=== PATIENT | female | born 1960 | race Caucasian/White ===

== ENCOUNTER → 2023-07-07 10:31 | Outpatient (REF) | payer BC, SELFPAY | LOC: WDC 10:31 | PROVIDERS: ATTENDING PHYSICIAN Nurse Practitioner | DX: Z12.31 Encounter for screening mammogram for malignant neoplasm of breast (principal) | CPT/HCPCS: 77063; 77067 ==

== ENCOUNTER → 2024-07-08 07:40 | Outpatient (REF) | payer OTHER, SELFPAY | LOC: WDC 07:40 | PROVIDERS: ATTENDING PHYSICIAN Nurse Practitioner Family; FAMILY PHYSICIAN Nurse Practitioner | DX: Z12.31 Encounter for screening mammogram for malignant neoplasm of breast (principal) | CPT/HCPCS: 77063; 77067 ==

== ENCOUNTER → 2024-10-12 13:53 | Outpatient (REF) | payer OTHER, SELFPAY | LOC: RAD 13:53 | PROVIDERS: ATTENDING PHYSICIAN Nurse Practitioner | DX: M25.551 Pain in right hip (principal) | CPT/HCPCS: 73523 ==

== ENCOUNTER 2024-11-18 16:57 | Emergency (ER) | payer OTHER, SELFPAY ==
[2024-11-18 17:00] VITALS: BP 147/83
--- NOTE | 2024-11-18 18:15 | EDRN ---
Elijah GUILLAUME in room w/ pt at this time.
[2024-11-18 18:21] VITALS: BP 143/94
--- NOTE | 2024-11-18 18:30 | ED.GENMED ---
History of Present Illness
General
Chief Complaint: Skin Problem
Source: patient
Exam Limitations: none
Time Seen by Provider: 11/18/24 17:41
History of Present Illness
History of Present Illness:
64yoF with a history of hypothyroidism presenting for evaluation of a facial boil. Patient started with a small pimple on the left side of her face just lateral to the nose about 7 to 10 days ago. Over the past 24 hours, the swelling has worsened
and it has come to a head. She states that a large amount of pus was draining last night. She went to see her PCP today who advised her to come to the ED for possible drainage. She was given a prescription for Augmentin although has not picked it
up yet. She denies any fevers, chills, body aches and is otherwise feeling well.
Phy Exam
General Physical Exam
General Presentation: well appearing and no apparent distress
General Skin: warm and dry
General Habitus: normal
ENT Exam
ENT Exam: normocephalic
Pulmonary Exam
Pulmonary Exam: no respiratory distress
Neurological Exam
Neurological Exam: alert
Mayra Coma Scale
Eye Opening: Spontaneous
Verbal Response: Oriented
Motor Response: Obeys Commands
GCS Total Score: 15
Skin Exam
Skin Exam: warm/dry and other (Carbuncle noted to the L cheek lateral to the nose with two 'heads,' one is scabbed over and the other is noted to be a moncada. No surrounding cellulitis.)
Psychiatric Exam
Psychiatric Exam: normal mood/affect
Course
Vital Signs
Initial and Last Documented VS:
Initial Vital Signs
Temp Pulse Resp BP Pulse Ox
98.3 F 84 18 147/83 99
11/18/24 17:00 11/18/24 17:00 11/18/24 17:00 11/18/24 17:00 11/18/24 17:00
Last Documented Vital Signs
Temp Pulse Resp BP Pulse Ox
98.3 F 76 16 143/94 99
11/18/24 17:00 11/18/24 18:21 11/18/24 18:21 11/18/24 18:21 11/18/24 18:30
MDM/Problems Addressed
Differential Diagnosis Includes:
64yoF here with a facial boil for >1 week. Became worse over the past 24 hours and started to drain. No f/c or systemic symptoms. VSS. She is well-appearing in no acute distress. On exam, there is a carbuncle noted lateral to the nose with an
overlying white head. Area is indurated without fluctuance. No signs of surrounding cellulitis. Decision made to avoid I&D given that the carbuncle is located within the danger triangle of the face although when I was examining the patient, the
area started to spontaneously drain purulence. She was advised to fill the antibiotics that were prescribed by her PCP earlier today and apply warm compresses. Strict ED return precautions reviewed. She was in agreement with plan and was
discharged in stable condition.
*Pulse Oximetry
SaO2: 99
Oxygen Mode of Delivery: Room air
Patient hypoxic: no (99%)
*Critical Care Note
Total Time (30-74mins, 75-104mins- exclusive of procedures): Not Applicable
ED Attending Note
-
Portions of this chart may have been created with voice recognition software.� Occasional wrong word or��sound alike� substitutions may have occurred due to the inherent limitations of voice recognition software.
Discharge Plan
Departure
Patient Disposition: Home (Routine Discharge)
Date of Disposition: 11/18/24
Time of Disposition: 18:29
Patient with high blood pressure during this ER visit?: Yes
Discharge Problem:
Carbuncle of face
Instructions: Boil - ED (DC)
Activity Restrictions/Additional Instructions:
Apply warm compresses to affected area 4-6 times daily. Start taking antibiotics as prescribed by your family doctor.
Return to the ER with any new or worsening symptoms including fevers, spreading redness, or if you do not have any improvement in the next 3 to 4 days.
Interventions
Interventions:
*Risk Screen - Suicide Last Done: 11/18/24 17:00
*General Assessment Last Done: 11/18/24 17:43
*Neglect/Abuse Screening Last Done: 11/18/24 17:00
*ED- Fall Risk Assessment Last Done: 11/18/24 17:43
*ED COVID-19 Vaccine History Last Done: 11/18/24 17:43
*Nursing Disposition Last Done: 11/18/24 18:47
ED-Skin Assessment Last Done: 11/18/24 17:43
Discharge Date and Time
Discharge Date/Time: 11/18/24 18:48
Print Language: [email or web address]
== END 2024-11-18 18:48 | disposition home or self-care (01) ==
LOC: EMR 16:57
PROVIDERS: EMERGENCY PHYSICIAN Emergency Medicine; FAMILY PHYSICIAN Nurse Practitioner
DX: L02.03 Carbuncle of face (principal); E03.9 Hypothyroidism, unspecified
CPT/HCPCS: 99282